=== PATIENT | male | born 1930 | race Caucasian/White ===

== ENCOUNTER 2017-03-19 11:54 | Outpatient (CLI) | payer OTHER | END 2017-03-19 20:00 | disposition home or self-care (01) | LOC: SCT 11:54 | PROVIDERS: ATTEND Internal Medicine | PROC: 0JJS3ZZ Inspection of Head and Neck Subcutaneous Tissue and Fascia, Percutaneous Approach (ICD-10-PCS; principal; 2017-03-19) | PROC: BW28ZZZ Computerized Tomography (CT Scan) of Head (ICD-10-PCS; 2017-03-19) | DX: D49.2 Neoplasm of unspecified behavior of bone, soft tissue, and skin (principal); R22.9 Localized swelling, mass and lump, unspecified | CPT/HCPCS: 77012; 88304; 88305; 88312; 88341; 88342 ==